=== PATIENT | female | born 1960 | race Caucasian/White ===

== ENCOUNTER → 2016-11-26 | Outpatient (CLI) | payer OTHER ==
[~2016-11-26] MED LIST: LEVO25TA4 PO; RABE20TA5 PO
== END | disposition home or self-care (01) ==
LOC: CFH 08:48
PROVIDERS: ATTEND Internal Medicine Cardiovascular Disease
DX: I77.810 Thoracic aortic ectasia (principal); I08.0 Rheumatic disorders of both mitral and aortic valves; Z91.81 History of falling
CPT/HCPCS: 93306

== ENCOUNTER → 2017-04-02 | Outpatient (CLI) | payer OTHER | END | disposition home or self-care (01) | LOC: CFH 08:59 | PROVIDERS: ATTEND Internal Medicine | DX: Z85.528 Personal history of other malignant neoplasm of kidney (principal); K21.9 Gastro-esophageal reflux disease without esophagitis; E04.9 Nontoxic goiter, unspecified; E03.9 Hypothyroidism, unspecified; E78.5 Hyperlipidemia, unspecified | CPT/HCPCS: 76700 ==

== ENCOUNTER 2017-05-28 10:32 | Day surgery (SDC) | payer OTHER ==
[2017-05-26 09:05] VITALS: BP 133/80
[~2017-05-28] VITALS: Ht 162.6 cm; Wt 58.2 kg
[~2017-05-28 10:32] MED LIST changes: +CETI10TA24 PO; +CETRIZINE HCL PO; +ERGO500017 PO; +FAMO-79 PO; +LEVO25TA2 PO; +RABE20TA18 PO; -RABE20TA5 PO
[2017-05-28] MEDS ORDERED: LACTATED RINGERS 1,000 ML IV SCH (11:02)
[2017-05-28] MEDS ORDERED: LIDOCAINE 1%, 2ML SQ PRN (11:30)
[2017-05-28] MEDS ORDERED: FENTANYL PF 100 MCG/2ML ONE (11:43)
[2017-05-28] MEDS ORDERED: MIDAZOLAM 1 MG/ML, 2ML ONE (11:43)
[2017-05-28] MEDS ORDERED: ONDANSETRON 2MG/ML, 2ML ONE (12:51)
[2017-05-28] MEDS ORDERED: DEXAMETHASONE 4 MG/ML, 1ML ONE (12:51)
[2017-05-28] MEDS ORDERED: PROPOFOL 10 MG/ML, 20ML ONE (12:51)
[2017-05-28] MEDS ORDERED: SUCCINYLCHOLINE 20 MG/ML, 10ML ONE (12:51)
[2017-05-28] MEDS ORDERED: HYDROmorphone 1 MG/ML, 1ML IV PRN (14:00)
[2017-05-28] MEDS ORDERED: OXYcodone 5 MG/5 ML ORAL.SOL UDC PO PRN (14:00)
[2017-05-28] MEDS ORDERED: PROMETHAZINE 25 MG/ML, 1ML IV PRN (14:00)
[2017-05-28] MEDS ORDERED: METOPROLOL 1 MG/ML, 5ML IV PRN (14:00)
[2017-05-28] MEDS ORDERED: ALBUTEROL SULFATE 2.5 MG/3 ML NPPB PRN (14:00)
[2017-05-28] MEDS ORDERED: MIDAZOLAM 1 MG/ML, 2ML IV PRN (14:00)
[2017-05-28] MEDS ORDERED: hydrALAzine 20 MG/ML, 1ML IV PRN (14:00)
[2017-05-28] MEDS ORDERED: FENTANYL PF 100 MCG/2ML IV PRN (14:00)
[2017-05-28 14:21] LABS: HEMATOCRIT 38.7 % (34.6-47.8); WHITE BLOOD COUNT 5.4 x10^3/uL (3.4-10)
[2017-05-28 14:35] LABS: FERRITIN 150.5 ng/mL (8-252)
== END 2017-05-28 15:50 ==
LOC: OR 10:32
PROVIDERS: ATTEND Internal Medicine
DX: K31.7 Polyp of stomach and duodenum (principal)
CPT/HCPCS: 36415; 43251; 82728; 83540; 83550; 84466; 85025; 88305; J0330; J1100; J2250; J2405; J2704; J3010; J7120